=== PATIENT | male | born 1980 | race Caucasian/White ===

== ENCOUNTER 2016-12-08 23:32 | Emergency (ER) | payer OTHER | END 2016-12-09 01:17 | disposition home or self-care (01) | LOC: ER 23:32 | DX: T67.5XXA Heat exhaustion, unspecified, initial encounter (principal); E87.6 Hypokalemia; R42 Dizziness and giddiness; R53.1 Weakness; R11.2 Nausea with vomiting, unspecified; R25.2 Cramp and spasm; F17.210 Nicotine dependence, cigarettes, uncomplicated; Z88.5 Allergy status to narcotic agent; Z91.010 Allergy to peanuts; X30.XXXA Exposure to excessive natural heat, initial encounter | CPT/HCPCS: 36415; 96361; 96374 ==

== ENCOUNTER 2016-12-11 01:43 | Emergency (ER) | payer OTHER | END 2016-12-11 02:24 | disposition home or self-care (01) | LOC: ER 01:43 | DX: L25.9 Unspecified contact dermatitis, unspecified cause (principal); F17.210 Nicotine dependence, cigarettes, uncomplicated; Z91.010 Allergy to peanuts; Z88.5 Allergy status to narcotic agent ==